=== PATIENT | female | born 1980 | race Caucasian/White ===

== ENCOUNTER → 2018-12-10 | Outpatient (CLI) | payer OTHER ==
[~2018-12-10] MED LIST: ALBU90OI INH; AMOX500 PO; AZIT250 PO; Augmentin 875-1 EACH PO; Bactrim Ds Tab1 EACH PO; CEPH500 PO; CIPR250 PO; CIPR500 PO; CLIN300 PO; CLON2 PO; DIVA125EC PO; GABA600 PO; HYDACE5 PO; IBUP600 PO; Keflex500 MG PO; LEVFLO500 PO; METPRE4DP PO; MULVITMINE PO; Mucinex600 MG PO; Neurontin 300300 MG PO; OXYACE5T PO; Ocuflox5 ML BOTHEYES; Ocuflox5 ML LEFTEYE; PENVK500 PO; PHENA200 PO; PROCODE120 PO; Percocet 5-3251 EACH PO; Pyridium100 MG PO; Pyridium200 MG PO; SULTRIDS PO; Silvadene20 GM TOP; TOBR.3OPO LEFTEYE; TRAM50 PO; Ultram50 MG PO; VENL25 PO; [UNRECOGNIZED DRUG - REMARK]; [UNRECOGNIZED DRUG - REMARK]
[2018-12-15 19:06] LABS: CHLAMYDIA TRACHOMATIS, NAA Negative (Negative); HPV 16 Negative (Negative); HPV 18 Negative (Negative); HPV OTHER HR TYPES Positive (Negative); NEISSERIA GONORRHOEAE, NAA Negative (Negative)
== END | disposition home or self-care (01) ==
LOC: LAB 07:30 → LAB SHORT 07:30
PROVIDERS: Nurse Practitioner Family
DX: Z01.419 Encounter for gynecological examination (general) (routine) without abnormal findings (principal); Z72.51 High risk heterosexual behavior
CPT/HCPCS: 87491; 87591; 87624; 87625; G0123

== ENCOUNTER → 2022-02-04 | Outpatient (CLI) | payer OTHER ==
[~2022-02-04] MED LIST changes: +AMPDEX30CR PO; +BUPRENO-NALOX1 EACH SL
== END ==
LOC: LAB 09:50 → LAB SHORT 09:50
DX: N30.00 Acute cystitis without hematuria (principal)
CPT/HCPCS: 87077; 87086; 87186